=== PATIENT | male | born 1950 | race Caucasian/White ===

== ENCOUNTER 2020-01-24 05:55 | Inpatient (IN) ==
[2020-01-20 11:51] LABS: Basophils % 0.6 % (0.0-0.8); Eosinophils # 0.1 10*3/uL (0.0-0.87); Hematocrit 49.7 VOL% (42.0-52.0); Hemoglobin 15.8 GM/DL (14.0-18.0); Immature Granulocytes % 0.6 %; Immature Granulocytes Absolute 0.04 #; Lymphocytes # 1.5 10*3/uL (1.4-4.0); Lymphocytes % 23.1 % (21.2-54.2); Mean Corpuscular HGB Conc 31.8 GM/DL (32-36); Mean Corpuscular Volume 87.3 FL (87-102); Mean Platelet Volume 11.1 FL (9.6-12.0); Monocytes % 10.1 % (1.7-12.7); Neutrophils % 63.6 % (38.7-73.9); Platelet Count 186 T/CUMM (130-400); Red Blood Count 5.69 MC/CUMM (3.8-5.5); White Blood Count 6.4 T/CUMM (4-12)
[2020-01-20 12:23] LABS: Calcium 9.7 MG/DL (8.5-10.1); Osmolality,Calculated 278.4 MOS/KG (273-304)
[2020-01-24] MEDS ORDERED: LACTATED RINGERS 1,000 ML IV SCH (06:00)
[2020-01-24] MEDS ORDERED: ERTAPENEM 1,000 MG in SODIUM CHLORIDE 0.9% 100 ML IV ONE (06:00)
[2020-01-24] MEDS ORDERED: ALVIMOPAN 12 MG CAPSULE PO ONE (06:00)
[2020-01-24] MEDS ORDERED: ALVIMOPAN 12 MG CAPSULE ONE (06:11)
[2020-01-24] MEDS ORDERED: ERTAPENEM 1,000 MG VIAL ONE (06:12)
[2020-01-24] MEDS ORDERED: DIAZEPAM 5 MG TABLET PO ONE (06:25)
[2020-01-24] MEDS ORDERED: FAMOTIDINE 20 MG TABLET PO ONE (06:25)
[2020-01-24] MEDS ORDERED: EPINEPHrine 1 MG/ML VIAL ONE (06:27)
[2020-01-24] MEDS ORDERED: BUPIVACAINE MPF 0.25% 30 ML VIAL ONE (06:28)
[2020-01-24] MEDS ORDERED: DEXAMETHASONE 4 MG/1 ML VIAL ONE ×2 (06:28→11:25)
[2020-01-24] MEDS ORDERED: DIAZEPAM 5 MG TABLET ONE (06:49)
[2020-01-24] MEDS ORDERED: FAMOTIDINE 20 MG TABLET ONE (06:49)
[2020-01-24] MEDS ORDERED: FAMOTIDINE 20 MG/2 ML VIAL IV ONE ×2 (07:22→11:25)
[2020-01-24] MEDS ORDERED: propofoL 200 MG/20 ML VIAL IV ONE (11:24)
[2020-01-24] MEDS ORDERED: LIDOCAINE 2% 5 ML VIAL ONE (11:24)
[2020-01-24] MEDS ORDERED: SEVOFLURANE 1 UNIT/15 MINUTE INH ONE (11:24)
[2020-01-24] MEDS ORDERED: fentaNYL 100 MCG/2 ML VIAL ONE (11:24)
[2020-01-24] MEDS ORDERED: MIDAZOLAM 2 MG/2 ML VIAL ONE (11:24)
[2020-01-24] MEDS ORDERED: NEOSTIGMINE 10 MG/10 ML VIAL ONE ×2 (11:25→11:26)
[2020-01-24] MEDS ORDERED: ePHEDrine 50 MG/ML VIAL ONE (11:25)
[2020-01-24] MEDS ORDERED: ROCURONIUM 100 MG/10 ML VIAL IV ONE (11:25)
[2020-01-24] MEDS ORDERED: ONDANSETRON 4 MG/2 ML VIAL ONE (11:25)
[2020-01-24] MEDS ORDERED: ALBUTEROL INHALER 18 GM INH ONE (11:25)
[2020-01-24] MEDS ORDERED: GLYCOPYRROLATE 0.4 MG/2 ML VIAL ONE (11:25)
[2020-01-24] MEDS ORDERED: PHENYLEPHRINE 1 MG/10 ML SYRINGE IV ONE (11:25)
[2020-01-24] MEDS ORDERED: LACTATED RINGERS 2,000 ML IV ONE (11:26)
[2020-01-24] MEDS ORDERED: SUFentanil 50 MCG/ML AMP ONE (11:27)
[2020-01-24] MEDS ORDERED: MORPHINE 4 MG/1 ML VIAL IV PRN (11:34)
[2020-01-24] MEDS ORDERED: HYDROmorphone 2 MG/1 ML VIAL IV PRN (11:54)
[2020-01-24] MEDS ORDERED: ONDANSETRON 4 MG/2 ML VIAL IV PRN (11:54)
[2020-01-24 13:33] LABS: Hematocrit 49.9 VOL% (42.0-52.0); Hemoglobin 15.8 GM/DL (14.0-18.0)
[2020-01-24] MEDS: cefOXitin 2,000 MG in SYRINGE 1 EACH IV SCH ×2 (16:25→21:08)
[2020-01-24] MEDS: DEXTROSE 5% LACTATED RINGERS 1,000 ML IV SCH ×2 (16:27→21:12)
[2020-01-24 19:44] LABS: Hematocrit 47.5 VOL% (42.0-52.0); Hemoglobin 15.5 GM/DL (14.0-18.0)
[2020-01-24] MEDS: ALVIMOPAN 12 MG CAPSULE PO SCH (21:08)
[2020-01-25] MEDS: cefOXitin 2,000 MG in SYRINGE 1 EACH IV SCH (03:18)
[2020-01-25 05:43] LABS: Basophils % 0.1 % (0.0-0.8); Hematocrit 47.7 VOL% (42.0-52.0); Hemoglobin 15.2 GM/DL (14.0-18.0); Immature Granulocytes % 0.3 %; Immature Granulocytes Absolute 0.03 #; Lymphocytes # 0.9 10*3/uL (1.4-4.0); Mean Corpuscular HGB Conc 31.9 GM/DL (32-36); Mean Corpuscular Volume 88.2 FL (87-102); Mean Platelet Volume 11.5 FL (9.6-12.0); Monocytes % 9.5 % (1.7-12.7); Neutrophils % 81.1 % (38.7-73.9); Platelet Count 153 T/CUMM (130-400); Red Blood Count 5.41 MC/CUMM (3.8-5.5); Red Cell Distribution Width 14.4 % (9.3-17.3); White Blood Count 9.9 T/CUMM (4-12)
[2020-01-25] MEDS: ENOXAPARIN 40 MG/0.4 ML SYRINGE SUBCUT SCH (05:48)
[2020-01-25] MEDS: DEXTROSE 5% LACTATED RINGERS 1,000 ML IV SCH ×2 (05:50→16:34)
[2020-01-25 06:17] LABS: Bilirubin,Total 0.7 MG/DL (0.2-1.0); Calcium 9.6 MG/DL (8.5-10.1); Osmolality,Calculated 277.4 MOS/KG (273-304); Total Protein 6.6 G/DL (6.4-8.3)
[2020-01-25] MEDS: PANTOPRAZOLE 40 MG TABLET PO SCH (09:18)
[2020-01-25] MEDS: ALVIMOPAN 12 MG CAPSULE PO SCH ×2 (09:18→20:18)
[2020-01-26] MEDS: DEXTROSE 5% LACTATED RINGERS 1,000 ML IV SCH (04:36)
[2020-01-26] MEDS: ENOXAPARIN 40 MG/0.4 ML SYRINGE SUBCUT SCH (05:14)
[2020-01-26 08:46] LABS: Calcium 9.6 MG/DL (8.5-10.1); Osmolality,Calculated 278.3 MOS/KG (273-304)
[2020-01-26] MEDS: ALVIMOPAN 12 MG CAPSULE PO SCH (08:50)
[2020-01-26] MEDS: PANTOPRAZOLE 40 MG TABLET PO SCH (08:50)
[2020-01-26 12:43] VITALS: BP 142/83
== END 2020-01-26 11:15 | disposition home or self-care (01) | DRG 330 ==
LOC: N.SDSINP 05:55 → EDSTATUS 07:30 → N.3E 12:46
PROVIDERS: ADMIT Surgery; ATTEND Surgery